=== PATIENT | male | born 1965 | race Caucasian/White ===

== ENCOUNTER → 2017-03-18 | Outpatient (CLI) | payer OTHER ==
[~2017-03-18] MED LIST: IBUP-1050 PO; OMEG10007 PO; PEDICHW34 PO
[2017-03-18 13:42] LABS: ESTIMATED AVERAGE GLUCOSE 100 mg/dl; HA1C FLAG Normal (Normal)
[2017-03-18 13:48] LABS: ALT/SGPT 48 U/L (12-78); AST/SGOT 31 U/L (15-37); BLOOD UREA NITROGEN 8 mg/dl (7-18); BUN/CREATININE RATIO 8.9 (10-20); CALCIUM 9.1 mg/dl (8.5-10.1); CARBON DIOXIDE 25 mmol/L (21-32); CHLORIDE 102 mmol/L (98-107); CREATININE 0.92 mg/dl (0.60-1.40); GLUCOSE 85 mg/dl (70-99); POTASSIUM 4.3 mmol/L (3.5-5.1); SODIUM 136 mmol/L (136-145)
[2017-03-18 13:54] LABS: ALB/GLOB RATIO 1.1 (0.9-2); ALKALINE PHOSPHATASE 50 U/L (45-117); CHOLESTEROL 180 mg/dl (0-200); CHOLESTEROL/HDL RATIO 3.8; HDL CHOLESTEROL 47 mg/dl; LDL CHOLESTEROL CALCULATED 61 mg/dl; PROSTATE SPECIFIC ANTIGEN 0.716 ng/ml (0.000-4.000); TRIGLYCERIDES 360 mg/dl (0-150); VERY LOW DENSITY LIPOPROT CALC 72 mg/dl
== END | disposition home or self-care (01) ==
LOC: C.LAB1850 11:39
PROVIDERS: ATTEND Family Medicine
DX: Z12.5 Encounter for screening for malignant neoplasm of prostate (principal); E78.5 Hyperlipidemia, unspecified; Z13.1 Encounter for screening for diabetes mellitus

== ENCOUNTER 2017-04-14 13:45 | Emergency (ER) | payer OTHER ==
[~2017-04-14] VITALS: Ht 170.2 cm; Wt 96.9 kg
[~2017-04-14 13:45] MED LIST changes: -IBUP-1050 PO
[2017-04-14 13:47] VITALS: TEMP 36.9; Ht 170.2 cm; Wt 96.9 kg
[2017-04-14] MEDS ORDERED: LORAZEPAM 2 MG/ML 1 ML VIAL IV STA (14:20)
--- NOTE | 2017-04-14 14:27 | EMERGENCY ROOM VISIT NOTE ---
History First contact with patient: 14:03 Chief Complaint: CHEST PAIN Stated Complaint: SOB, HEART PALPITATIONS, DIZZY, NUMB FINGERS Nursing Triage Summary: c/o SOB and chest tightness after walking, started approx 1 hour ago hx of afib - states not on any blood thinners History of Present Illness The patient is a 51 year old male who presents to the Emergency Room with complaints of shortness of breath and lightheadedness that started this morning. The patient also reports heart palpitations. He denies any chest pain or pressure. He has a history of paroxysmal A. fib. He has only had 2 episodes. He does not take any anticoagulation. He denies any recent illnesses such as cough, fever or chills. He does admit that his symptoms may be related to anxiety. Review of Systems 10 system review performed and negative unless noted in HPI or below Past Medical/Surgical History Surgical Problems: (1) Hx of cholecystectomy Family History Diabetes mellitus FH: gallbladder disease FH: heart disease Hypertension Social History Smoking Status: Never Smoker Alcohol Use: occasionally Drug Use: none Marital Status: Housing Status: lives with family Occupation Status: employed Current/Historical Medications Scheduled Fish Oil (Wilcox-3), 1 CAP PO DAILY Pediatric Multiple Vitamin W/ (Gummi Bear Multivitamin/M), 3 TABS PO 3XWK Scheduled PRN Ibuprofen (Advil), 200-600 MG PO Q4H PRN for Pain Physical Exam Vital Signs Date Time Temp Pulse Resp B/P (MAP) Pulse Ox O2 Delivery O2 Flow Rate FiO2 04/14/17 14:48 71 16 132/70 94 Room Air 04/14/17 14:24 67 04/14/17 13:50 97 Room Air 04/14/17 13:47 36.9 79 22 157/100 97 Room Air Physical Exam VITALS: Vitals are noted on the nurse's note and reviewed by myself. Vital signs stable. GENERAL: 51-year-old male, anxious in appearance, SKIN: The skin was without rashes, erythema, edema, or bruising. HEAD: Normocephalic atraumatic. MOUTH: Mucous membranes moist. NECK: Supple without nuchal rigidity. No JVD. HEART: Regular rate and rhythm without murmurs gallops or rubs. LUNGS: Clear to auscultation bilaterally without wheezes, rales or rhonchi. No accessory muscle use. ABDOMEN: Positive bowel sounds x 4.Soft, nontender, without organomegaly. No guarding or rebound tenderness. MUSCULOSKELETAL: Trace pitting edema in the lower extremities bilaterally. No erythema, warmth or tenderness appreciated. NEURO: Alert and oriented 3. No neurological deficits. Medical Decision & Procedures Laboratory Results 04/14/17 13:55 Red Blood Count 4.76, Mean Corpuscular Volume 91.8, Mean Corpuscular Hemoglobin 33.8, Mean Corpuscular Hemoglobin Concent 36.8, Mean Platelet Volume 9.0, Neutrophils (%) (Auto) 45.5, Lymphocytes (%) (Auto) 44.6, Monocytes (%) (Auto) 6.5, Eosinophils (%) (Auto) 2.6, Basophils (%) (Auto) 0.6, Neutrophils # (Auto) 2.32, Lymphocytes # (Auto) 2.27, Monocytes # (Auto) 0.33, Eosinophils # (Auto) 0.13, Basophils # (Auto) 0.03 04/14/17 13:55 Test 04/14/17 13:55 White Blood Count 5.09 K/uL (4.8-10.8) Red Blood Count 4.76 M/uL (4.7-6.1) Hemoglobin 16.1 g/dL (14.0-18.0) Hematocrit 43.7 % (42-52) Mean Corpuscular Volume 91.8 fL (80-100) Mean Corpuscular Hemoglobin 33.8 pg (25-34) Mean Corpuscular Hemoglobin Concent 36.8 g/dl (32-36) Platelet Count 141 K/uL (130-400) Mean Platelet Volume 9.0 fL (7.4-10.4) Neutrophils (%) (Auto) 45.5 % Lymphocytes (%) (Auto) 44.6 % Monocytes (%) (Auto) 6.5 % Eosinophils (%) (Auto) 2.6 % Basophils (%) (Auto) 0.6 % Neutrophils # (Auto) 2.32 K/uL (1.4-6.5) Lymphocytes # (Auto) 2.27 K/uL (1.2-3.4) Monocytes # (Auto) 0.33 K/uL (0.11-0.59) Eosinophils # (Auto) 0.13 K/uL (0-0.5) Basophils # (Auto) 0.03 K/uL (0-0.2) RDW Standard Deviation 39.0 fL (36.4-46.3) RDW Coefficient of Variation 11.6 % (11.5-14.5) Immature Granulocyte % (Auto) 0.2 % Immature Granulocyte # (Auto) 0.01 K/uL (0.00-0.02) D-Dimer 190 ug/L FEU (0-500) Anion Gap 9.0 mmol/L (3-11) Est Creatinine Clear Calc Drug Dose 79.0 ml/min Estimated GFR () 79.5 Estimated GFR (Non- 68.6 BUN/Creatinine Ratio 8.0 (10-20) Calcium Level 9.1 mg/dl (8.5-10.1) Magnesium Level 1.8 mg/dl (1.8-2.4) Total Bilirubin 0.5 mg/dl (0.2-1) Aspartate Amino Transf (AST/SGOT) 40 U/L (15-37) Alanine Aminotransferase (ALT/SGPT) 54 U/L (12-78) Alkaline Phosphatase 94 U/L (45-117) Troponin I < 0.015 ng/ml (0-0.045) Total Protein 7.7 gm/dl (6.4-8.2) Albumin 4.0 gm/dl (3.4-5.0) Globulin 3.7 gm/dl (2.5-4.0) Albumin/Globulin Ratio 1.1 (0.9-2) Lipase 139 U/L (73-393) Medications Administered Medications (Trade) Dose Ordered Sig/Veronica Route Start Time Stop Time Status Last Admin Dose Admin Lorazepam (Ativan Inj) 0.5 mg NOW STAT IV 04/14/17 14:20 04/14/17 14:22 DC 04/14/17 14:48 0.5 MG ECG Indication: SOB/dyspnea Rate (beats per minute): 82 Rhythm: normal sinus ED Course Patient was seen and examined Vital signs including blood pressure were reviewed medications list was verified with patient Labs were obtained, and a saline lock was established An EKG was performed, and a monitor was applied. The patient was given 1 dose of Ativan 0.5 mg IV Upon reevaluation, the patient was feeling much better. We reviewed his workup. He voiced understanding. He was comfortable being discharged home. I reviewed discharge instructions the patient. They voiced understanding and had no further questions. Medical Decision Differential diagnosis: Anxiety attack, coronary embolus, Acute myocardial infarction, cardiac arrhythmia, anemia, thyroid abnormality, pneumothorax, pneumonia, bronchitis, pericarditis, electrolyte imbalance This patient is a pleasant 51-year-old male that presents emergency department with heart palpitations and shortness of breath concerning that he was in a cardiac arrhythmia. He is very anxious in appearance, and admits that his symptoms may be anxiety related. An EKG shows normal sinus rhythm. He did however tell me that he had a flight to and back from [place] 3 days ago. I checked a d-dimer, which was negative. I have a low suspicion of pulmonary embolus. I believe it is likely his anxiety that may have caused a panic attack. His vital signs are stable. He is stable to be discharged home. I recommended that he follow-up with his primary care physician within one week. He was informed that he could return to the emergency department with any new or worsening symptoms. Blood Pressure Screening Patient's blood pressure: Elevated blood pressure Blood pressure disposition: Elevated BP felt to be situational Impression Primary Impression: Shortness of breath Additional Impression: Anxiety Departure Information Dispostion Home / Self-Care Condition GOOD Referrals No Doctor, Assigned (PCP) Patient Instructions Anxiety , My [facility] Additional Instructions You were evaluated in the emergency department today for shortness of breath and palpitations. There are no signs of any heart arrhythmias. There were no abnormalities noted with your chest x-ray. It is possible that your symptoms are related to anxiety. Please follow-up with your primary care physician within one week. There may be medications that could help you if your symptoms persist. Please return to the emergency department with any worsening symptoms or new medical concerns. Problem Qualifiers
[2017-04-14 14:32] LABS: BASO % 0.6 %; BASO ABS # 0.03 K/uL (0-0.2); COMPLETE YES; EOS % 2.6 %; HEMATOCRIT 43.7 % (42-52); IG% 0.2 %; LYMPH % 44.6 %; LYMPH ABS # 2.27 K/uL (1.2-3.4); MEAN CELL VOLUME 91.8 fL (80-100); MEAN CORPUSCULAR HEMOGLOBIN 33.8 pg (25-34); MEAN CORPUSCULAR HGB CONC 36.8 g/dl (32-36); MONO % 6.5 %; NEUT % 45.5 %; PLATELET COUNT 141 K/uL (130-400); RED BLOOD COUNT 4.76 M/uL (4.7-6.1); WHITE BLOOD COUNT 5.09 K/uL (4.8-10.8)
[2017-04-14] MEDS ORDERED: IBUP-1050 PO (14:34)
[2017-04-14 14:40] LABS: ALT/SGPT 54 U/L (12-78); AST/SGOT 40 U/L (15-37); BLOOD UREA NITROGEN 10 mg/dl (7-18); CALCIUM 9.1 mg/dl (8.5-10.1); CARBON DIOXIDE 23 mmol/L (21-32); CHLORIDE 102 mmol/L (98-107); GLUCOSE 138 mg/dl (70-99); MAGNESIUM 1.8 mg/dl (1.8-2.4); POTASSIUM 3.5 mmol/L (3.5-5.1); SODIUM 134 mmol/L (136-145)
[2017-04-14 14:45] LABS: ALB/GLOB RATIO 1.1 (0.9-2); ALKALINE PHOSPHATASE 94 U/L (45-117)
--- NOTE | 2017-04-14 15:17 | DIAGNOSTIC IMAGING REPORT ---
CHEST ONE VIEW PORTABLE HISTORY: 51 years-old Male acute shortness of breath COMPARISON: Portable chest radiograph 11/27/2013 TECHNIQUE: Portable upright AP view of the chest FINDINGS: Cardiac silhouette is within normal limits. No pneumothorax, or focal airspace consolidation. There is mild blunting of the bilateral costophrenic angles. No overt pulmonary edema. The bones are grossly intact. IMPRESSION: Mild blunting of the costophrenic angles may reflect atelectasis or trace effusions. The study is otherwise unremarkable. The above report was generated using voice recognition software. It may contain grammatical, syntax or spelling errors. Electronically signed by: Srinivasan Nolan M.D. 04/14/2017 3:16 PM Dictated Date/Time: 04/14/2017 3:15 PM
[2017-04-14 15:53] VITALS: BP 132/86; PULSE 87; O2SAT 99
== END 2017-04-14 16:09 | disposition home or self-care (01) ==
LOC: C.EDB 13:46 → C.EDA 16:09
DX: R06.02 Shortness of breath (principal); F41.9 Anxiety disorder, unspecified; Z83.3 Family history of diabetes mellitus; Z82.49 Family history of ischemic heart disease and other diseases of the circulatory system